=== PATIENT | male | born 1975 | race Caucasian/White ===

== ENCOUNTER 2018-12-16 22:29 | Emergency (ER) | payer BC, OTHER ==
[~2018-12-16] VITALS: Ht 185.4 cm; Wt 108.6 kg
[2018-12-17] MEDS ORDERED: ADACEL/BOOSTRIX VACCINE (DIPHTH/PERTUSS/ACELL/TETANUS)0.5ML SYR (90715) IM ONE (01:15)
[2018-12-17 02:49] VITALS: BP 136/73
== END 2018-12-17 02:55 | disposition home or self-care (01) ==
LOC: M ED 22:29
DX: S61.011A Laceration without foreign body of right thumb without damage to nail, initial encounter (principal); W26.0XXA Contact with knife, initial encounter; Y92.89 Other specified places as the place of occurrence of the external cause

== ENCOUNTER 2021-11-02 21:57 | Emergency (ER) | payer BC, OTHER ==
[~2021-11-02] VITALS: Ht 185.4 cm; Wt 106.0 kg
[2021-11-02 21:58] VITALS: BP 135/79
[2021-11-02] MEDS ORDERED: FLUORESCEIN OPHTH 1 MG STRIP OS ONE (23:15)
[2021-11-02] MEDS ORDERED: PROPARACAINE 0.5% OPHTH SOL 15ML OS ONE (23:15)
[2021-11-02] MEDS ORDERED: ERYTHROMYCIN OPHTH OINT OS ONE (23:55)
[2021-11-02] MEDS ORDERED: ERYT5OIN25 OS (23:58)
== END 2021-11-03 00:16 | disposition home or self-care (01) ==
LOC: M ED 21:57
DX: S05.8X2A Other injuries of left eye and orbit, initial encounter (principal); T15.02XA Foreign body in cornea, left eye, initial encounter; X58.XXXA Exposure to other specified factors, initial encounter; Y92.89 Other specified places as the place of occurrence of the external cause

== ENCOUNTER → 2024-08-05 | Outpatient (CLI) | payer BC ==
[~2024-08-05] MED LIST: ERYT5OIN25 OS
== END ==
LOC: M RAD 06:44
PROVIDERS: ATTEND Orthopaedic Surgery
DX: M25.652 Stiffness of left hip, not elsewhere classified (principal); M67.462 Ganglion, left knee; S83.242A Other tear of medial meniscus, current injury, left knee, initial encounter